=== PATIENT | female | born 1955 | race Caucasian/White ===

== ENCOUNTER → 2016-05-24 | Outpatient (CLI) | payer OTHER ==
[~2016-05-24] MED LIST: AZELASTINE NASAL; CALCIUM; CALCIUM 1,2001 EACH; DERMACORT1 GM; DICLOFENAC 0.1%; ESTRACE0.5 MG; ESTRADIOL0.5 MG; Estrace; FLAXSEED OIL1000 M1 PO; LANSOPRAZOLE30 MG PO; LIDODERM30 EA TOP; MAGNESIU; MAGNESIUM OXIDE PO; MAGNESIUM250 M1; MAGNESIUM250 M1 PO; METOPROLOL TAR25 MG PO; MYRBETRIQ50 MG PO; NASACORT10.8 ML; NASONEX17 GM; NEURONTIN PO; NEURONTIN100 MG; PREMARIN VAG CR45 GM MC; PREVACID PO; REFRESH OPTIVE1 EACH; RESTASIS1 EACH; TYSABRI; VITAMIN D35000 UNIT PO; VOLTAREN 0.1%2.5 M1 OD; VOLTAREN GEL; VOLTAREN100 GM; VOLTAREN100 GM TP; Voltaren; XYLOCAINE MPF; [UNRECOGNIZED DRUG - OTHER]; [UNRECOGNIZED DRUG - OTHER] PO; [UNRECOGNIZED DRUG - OTHER] PO; [UNRECOGNIZED DRUG - SUPPLY]
--- NOTE | ~2016-05-24 | MR17 ---
[facility] A Service of [facility] RADIOLOGY TEXT RESULTS PATIENT: HUSSEIN AGUIRRE LOCATION: [facility] : 59 UNIT #: [id number] AGE: [address]: Daniel Griffin II, MD SEX: F ORDER DR: [id number] [address] [address] [id number] O MR#: [id number] Acc #: [id number] NAME: HUSSEIN AGUIRRE : 1955 SEX: F STUDY DATE/TIME: 05/24/2016 12:45 UNIT: [facility] ROOM: STUDY DESCRIPTION: MR Brain WWo Contrast Attending Physician: Daniel Griffin II., M.D. Ordering Physician: Daniel Griffin II., M.D. Primary Care Physician: Elie Rayo D.O. MRI CENTER REPORT This report is preliminary unless electronic signature is present. EXAM Brain MRI with and without contrast HISTORY Multiple sclerosis for many years. No new symptoms. Evaluate for progression over time. TECHNIQUE Multiplanar imaging of the brain was performed with and without contrast. 20 mL of MultiHance was used. COMPARISON 11/29/2015 FINDINGS Extensive demyelinating disease is seen in the periventricular region bilaterally. Additional plaques are seen in both temporal lobes and in the upper elio. Plaque is seen in the cerebellum on both sides and in the superior and middle cerebellar peduncles. Since the previous examination overall extent and distribution of plaque is unchanged. Postcontrast imaging shows no enhancing plaques. No mass lesions are seen. No evidence of recent infarct on diffusion weighted images. No evidence of hemorrhage. IMPRESSION Extensive demyelinating disease. Overall the plaque load is stable since the previous exam with no enhancing plaques seen. Dictated by... Elie Ashley M.D. THIS IS AN ELECTRONICALLY VERIFIED REPORT [facility] A Service [facility] RADIOLOGY TEXT RESULTS PATIENT: HUSSEIN AGUIRRE LOCATION: [facility] : 59 UNIT #: [id number] AGE: [address]: Daniel Griffin II, MD SEX: F ORDER DR: Elie Ashley M.D. at 05/28/2016 4:31 PM RUDOLPH/rolando TD: 05/24/2016 17:28 JOB #: [id number] MRI CENTER REPORT
--- NOTE | ~2016-05-24 | MR31 ---
[facility] A Service of [facility] RADIOLOGY TEXT RESULTS PATIENT: UHSSEIN AGUIRRE LOCATION: [facility] : 59 UNIT #: [id number] AGE: [address]: Daniel Griffin II, MD SEX: F ORDER DR: [id number] [address] [address] [id number] O MR#: [id number] Acc #: [id number] NAME: HUSSEIN AGUIRRE : 1955 SEX: F STUDY DATE/TIME: 05/24/2016 13:25 UNIT: [facility] ROOM: STUDY DESCRIPTION: MR Cervical WWo Contrast Attending Physician: Daniel Griffin II., M.D. Ordering Physician: Daniel Griffin II., M.D. Primary Care Physician: Elie Rayo D.O. MRI CENTER REPORT This report is preliminary unless electronic signature is present. EXAM Cervical spine MRI with and without contrast COMPARISON 11/29/2015 HISTORY Chronic multiple sclerosis. Evaluate for progression of disease over time. TECHNIQUE Multiplanar imaging of the cervical spine was performed with and without contrast. 20 mL of MultiHance was used. FINDINGS Moderate degenerative disc disease at C5-6 and C6-7 is again noted with milder degenerative changes at the other cervical levels. There is a plaque in the ventral cord to the right of midline at C2-3 that is unchanged from the previous scan. There is probably a small plaque in the lateral aspect of the cord on the right at C5. This is not a definite finding. There is a small plaque in the right side of the cord at C7-T1. This is unchanged as well. After contrast administration none of the cervical cord lesions enhance with contrast. IMPRESSION Subtle areas of increased T2 signal are seen in the cervical cord predominantly on the right side showing no significant change from the previous exam. No new or enhancing plaques are noted. Dictated by... Elie Ashley M.D. THIS IS AN ELECTRONICALLY VERIFIED REPORT [facility] A Service [facility] RADIOLOGY TEXT RESULTS PATIENT: HUSSEIN AGUIRRE LOCATION: [facility] #: [id number] : 59 UNIT #: [id number] AGE: [address]: Daniel Griffin II, MD SEX: F ORDER DR: Elie Ashley M.D. at 05/28/2016 4:31 PM Milana TD: 05/24/2016 17:15 JOB #: [id number] MRI CENTER REPORT
== END | disposition home or self-care (01) ==
LOC: SMRI 12:39
DX: G35 Multiple sclerosis (principal); G37.9 Demyelinating disease of central nervous system, unspecified; G93.89 Other specified disorders of brain
CPT/HCPCS: 70553; 72156; A9581

== ENCOUNTER → 2016-05-31 | Outpatient (CLI) | payer OTHER ==
--- NOTE | ~2016-05-31 | MR175 ---
[facility] A Service of [facility] RADIOLOGY TEXT RESULTS PATIENT: HUSSEIN AGUIRRE LOCATION: [facility] : 59 UNIT #: [id number] AGE: [address]: Daniel Griffin II, MD SEX: F ORDER DR: [id number] [address] [address] [id number] O MR#: [id number] Acc #: [id number] NAME: HUSSEIN AGUIRRE : 1955 SEX: F STUDY DATE/TIME: 05/31/2016 12:02 UNIT: [facility] ROOM: STUDY DESCRIPTION: MR Thoracic WWo Contrast Attending Physician: Daniel Griffin II., M.D. Referring Physician: Daniel Griffin II., M.D. Ordering Physician: Daniel Griffin II., M.D. Primary Care Physician: Elie Rayo D.O. MRI CENTER REPORT This report is preliminary unless electronic signature is present. EXAM Thoracic spine MR with and without contrast. HISTORY Serial interval follow-up for known multiple sclerosis; no new symptoms. COMPARISON STUDIES Prior MRI thoracic spine, 12/11/2015. FINDINGS Alignment is normal, and bone marrow signal is within normal limits. The paraspinous tissues are unremarkable. There is some slight degenerative change, but no canal stenosis at any level. Redemonstrated cholelithiasis. Multiple foci of abnormal T2 signal are redemonstrated within the thoracic cord, but postcontrast images show no convincing abnormal enhancement. No definite new lesions are seen. No areas of new cord expansion or volume loss. IMPRESSION 1. Stable extensive patchy T2 signal abnormality throughout the thoracic cord. No enhancing lesions are seen. No volume loss or cord expansion. 2. Mild degenerative change without substantial canal stenosis redemonstrated. 3. Redemonstrated incidental cholelithiasis. Dictated by... Ricardo Calles M.D. [facility] A Service of [facility] RADIOLOGY TEXT RESULTS PATIENT: HUSSEIN AGUIRRE LOCATION: [facility] : 59 UNIT #: [id number] AGE: [address]: Daniel Griffin II, MD SEX: F ORDER DR: THIS IS AN ELECTRONICALLY VERIFIED REPORT Ricardo Calles M.D. at 06/03/2016 4:31 PM BOOGIE/young TD: 06/03/2016 14:47 JOB #: [id number] MRI CENTER REPORT
== END | disposition home or self-care (01) ==
LOC: SMRI 11:41
DX: G35 Multiple sclerosis (principal); M47.814 Spondylosis without myelopathy or radiculopathy, thoracic region
CPT/HCPCS: 72157; A9581

== ENCOUNTER → 2016-06-17 | Outpatient (CLI) | payer OTHER | END | disposition home or self-care (01) | LOC: CSSDAY 10:05 | DX: G35 Multiple sclerosis (principal); Z79.899 Other long term (current) drug therapy | CPT/HCPCS: 96413; J2323 ==

== ENCOUNTER → 2016-07-12 | Outpatient (CLI) | payer OTHER | END | disposition home or self-care (01) | LOC: CSSDAY 10:13 | DX: G35 Multiple sclerosis (principal); Z79.899 Other long term (current) drug therapy | CPT/HCPCS: 96413; J2323 ==

== ENCOUNTER → 2016-08-07 | Outpatient (CLI) | payer OTHER | END | disposition home or self-care (01) | LOC: CSSDAY 09:00 | DX: G35 Multiple sclerosis (principal); Z79.899 Other long term (current) drug therapy | CPT/HCPCS: 96413; J2323 ==

== ENCOUNTER → 2016-08-14 | Outpatient (CLI) | payer OTHER ==
--- NOTE | ~2016-08-14 | US85 ---
[facility] A Service of [facility] RADIOLOGY TEXT RESULTS PATIENT: HUSSEIN AGUIRRE LOCATION: [facility] : 59 UNIT #: [id number] AGE: [address]: Isha Bennett MD SEX: F ORDER DR: [id number] [facility] [address] [facility]. [place], [place] [address] [id number] O MR#: [id number] Acc #: [id number] NAME: HUSSEIN AGUIRRE : 1955 SEX: F STUDY DATE/TIME: 08/14/2016 12:26 UNIT: [facility] ROOM: STUDY DESCRIPTION: [facility] Veins Unilat or [facility] Attending Physician: Isha Bennett M.D. Referring Physician: Isha Bennett M.D. Ordering Physician: Isha Bennett M.D. Primary Care Physician: Elie Rayo D.O. MEDICAL IMAGING REPORT This report is preliminary unless electronic signature is present EXAM Left lower extremity venous duplex scan DATE OF EXAMINATION: 08/14/16 HISTORY Left leg pain and swelling. FINDINGS High resolution B mode imaging and color-flow Doppler analysis was performed of the deep and superficial veins of the left lower extremity. All veins are fully compressible with no intraluminal thrombus. Spontaneous and phasic flow is noted in the left common femoral, deep femoral, femoral, and popliteal veins. Flow is demonstrated in the left anterior tibial, posterior tibial, and peroneal veins. Flow is also present in the left great saphenous vein. IMPRESSION Normal venous examination of the left lower extremity. No deep or superficial vein thrombosis in the left leg. Dictated by... Zeyad Farley M.D. THIS IS AN ELECTRONICALLY VERIFIED REPORT Zeyad Farley M.D. at 08/15/2016 7:32 AM MARTINEZ/reilly TD: 08/14/2016 13:27 JOB #: [id number] [facility] A Service of [facility] RADIOLOGY TEXT RESULTS PATIENT: HUSSEIN AGUIRRE [id number] 59 UNIT #: [id number] AGE: [address]: Isha Bennett MD SEX: F ORDER DR: MEDICAL IMAGING REPORT Page 1 of 1 COPY
== END | disposition home or self-care (01) ==
LOC: CNIV 11:57
DX: I82.402 Acute embolism and thrombosis of unspecified deep veins of left lower extremity (principal)
CPT/HCPCS: 93971

== ENCOUNTER → 2016-09-02 | Outpatient (CLI) | payer OTHER | END | disposition home or self-care (01) | LOC: CSSDAY 09:20 | DX: G35 Multiple sclerosis (principal); Z79.899 Other long term (current) drug therapy | CPT/HCPCS: 96413; J2323 ==

== ENCOUNTER → 2016-09-27 | Outpatient (CLI) | payer OTHER | END | disposition home or self-care (01) | LOC: CSSDAY 09:16 | DX: G35 Multiple sclerosis (principal); Z79.899 Other long term (current) drug therapy | CPT/HCPCS: 96413; J2323 ==

== ENCOUNTER → 2016-10-23 | Outpatient (CLI) | payer OTHER | END | disposition home or self-care (01) | LOC: CSSDAY 09:58 | DX: G35 Multiple sclerosis (principal) | CPT/HCPCS: 96413; J2323 ==

== ENCOUNTER → 2016-11-08 | Outpatient (CLI) | payer OTHER ==
--- NOTE | ~2016-11-08 | MR31 ---
[facility] A Service of [facility] RADIOLOGY TEXT RESULTS PATIENT: HUSSEIN AGUIRRE LOCATION: [facility] : 59 UNIT #: [id number] AGE: [address]: Daniel Griffin II, MD SEX: F ORDER DR: [id number] [address] [address] [id number] O MR#: [id number] Acc #: [id number] NAME: HUSSEIN AGUIRRE : 1955 SEX: F STUDY DATE/TIME: 11/08/2016 12:57 UNIT: [facility] ROOM: STUDY DESCRIPTION: MR Cervical WWo Contrast Attending Physician: Daniel Griffin II., M.D. Referring Physician: Daniel Griffin II., M.D. Ordering Physician: Daniel Griffin II., M.D. Primary Care Physician: Elie Rayo D.O. MRI CENTER REPORT This report is preliminary unless electronic signature is present. EXAM Cervical spine MRI with and without contrast 11/08/2016 PROCEDURE Cervical spine MRI with and without contrast performed on 10/31/2016 with postcontrast images on 11/08/2016 HISTORY Multiple sclerosis, routine follow up. No new symptoms. COMPARISON 05/21/2016. FINDINGS Spine alignment is normal. Bone marrow signal is normal. The paraspinous tissues are unremarkable. There are some degenerative changes, with some right canal and foraminal narrowing at 3-4, mild canal narrowing at 4-5, canal and slight foraminal narrowing at 5-6, but no cord compression, and canal narrowing and slight left foraminal narrowing at 6-7 without cord compression. These findings are stable. There is some abnormal T2 signal in the right hand margin of the cord at about the level of the 5-6 and 6-7 disc. It is fairly subtle but there is no abnormal enhancement, and it is probably unchanged since the prior study. IMPRESSION Faint abnormal T2 signal in the right hand margin of the cord about the 5-6 and 6-7 disc and fairly subtle overall though probably unchanged since the prior study. No new abnormality is seen. No abnormal enhancement. There are modest degenerative changes without cord compression. This appears stable as well. [facility] A Service of [facility] RADIOLOGY TEXT RESULTS PATIENT: HUSSEIN AGUIRRE LOCATION: [facility] : 59 UNIT #: [id number] AGE: [address]: Daniel Griffin II, MD SEX: F ORDER DR: Dictated by... Ricardo Calles M.D. THIS IS AN ELECTRONICALLY VERIFIED REPORT Ricardo Calles M.D. at 11/15/2016 4:55 PM TEV/cmm TD: 11/11/2016 14:20 JOB #: [id number] MRI CENTER REPORT Page 1 of 1
--- NOTE | ~2016-11-08 | MR17 ---
[facility] A Service of [facility] RADIOLOGY TEXT RESULTS PATIENT: HUSSEIN AGUIRRE LOCATION: [facility] : 59 UNIT #: [id number] AGE: [address]: Daniel Griffin II, MD SEX: F ORDER DR: [id number] [place] [id number] O MR#: [id number] Acc #: [id number] NAME: HUSSEIN AGUIRRE : 1955 SEX: F STUDY DATE/TIME: 11/08/2016 12:46 UNIT: [facility] ROOM: STUDY DESCRIPTION: MR Brain WWo Contrast Attending Physician: Daniel Griffin II., M.D. Referring Physician: Daniel Griffin II., M.D. Ordering Physician: Daniel Griffin II., M.D. Primary Care Physician: Elie Rayo D.O. MRI CENTER REPORT This report is preliminary unless electronic signature is present. EXAM Brain MR with and without contrast. PROCEDURE Brain MRI with and without contrast was performed as a without series on 10/25/2016 and postcontrast images on 11/08/2016. COMPARISON Prior brain MRI, 05/24/2016. HISTORY Known multiple sclerosis, routine followup, no new symptoms. FINDINGS Extensive white matter changes typical of multiple sclerosis are redemonstrated along with mild cerebral volume loss, both stable since the prior study. There are no new white matter lesions when compared to the study of 05/16/2016 and there are no areas of restricted diffusion. Postcontrast images show no abnormal enhancement and there is no hemorrhage or hydrocephalus or extraaxial fluid collection. Normal flow voids are seen in the cerebral vessels. There is some mild paranasal sinus mucosal thickening in the maxillary sinus floors bilaterally. IMPRESSION Stable extensive white matter changes typical of multiple sclerosis, no interval change since 05/24/2016. No areas of abnormal diffusion signal or contrast enhancement are seen to suggest active demyelination. No interval change since 05/24/2016. Dictated by... [facility] A Service [facility] RADIOLOGY TEXT RESULTS PATIENT: HUSSEIN AGUIRRE LOCATION: [facility] : 59 UNIT #: [id number] AGE: [address]: Daniel Griffin II, MD SEX: F ORDER DR: Ricardo Calles M.D. THIS IS AN ELECTRONICALLY VERIFIED REPORT Ricardo Calles M.D. at 11/15/2016 4:54 PM TEV/tmw TD: 11/11/2016 12:25 JOB #: [id number] MRI CENTER REPORT Page 1 of 1
== END | disposition home or self-care (01) ==
LOC: SMRI 11-06 10:15
DX: G35 Multiple sclerosis (principal); M47.892 Other spondylosis, cervical region; R93.7 Abnormal findings on diagnostic imaging of other parts of musculoskeletal system
CPT/HCPCS: 70553; 72156; A9581

== ENCOUNTER → 2016-11-15 | Outpatient (CLI) | payer OTHER ==
--- NOTE | ~2016-11-15 | MR175 ---
[facility] A Service of [facility] RADIOLOGY TEXT RESULTS PATIENT: HUSSEIN AGUIRRE LOCATION: [facility] : 59 UNIT #: [id number] AGE: [address]: Daniel Griffin II, MD SEX: F ORDER DR: [id number] [address] [address] [id number] O MR#: [id number] Acc #: [id number] NAME: HUSSEIN AGUIRRE : 1955 SEX: F STUDY DATE/TIME: 11/15/2016 10:24 UNIT: [facility] ROOM: STUDY DESCRIPTION: MR Thoracic WWo Contrast Attending Physician: Daniel Griffin II., M.D. Referring Physician: Daniel Griffin II., M.D. Ordering Physician: Daniel Griffin II., M.D. Primary Care Physician: Elie Rayo D.O. MRI CENTER REPORT This report is preliminary unless electronic signature is present. EXAM MRI of the thoracic spine with and without contrast dated 11/15/2016 COMPARISON MRI thoracic spine with and without contrast dated 05/31/2016. HISTORY Follow-up known multiple sclerosis. No new complaints. FINDINGS Multisequence, multiplanar imaging of the thoracic spine was obtained with and without contrast. 20 mL of MultiHance was administered intravenously. Vague multiple increased T2 signal changes are noted in the thoracic cord involving multiple levels. They do not appear to have significantly changed given the differences in slice selection. Mild degenerative disc disease and facet changes are noted at multiple levels. They do not appear to have significantly changed either. There is a fatty signal lesion noted within the right lateral aspect of T7 and left lateral aspect of T2 vertebral bodies. They demonstrate mild increased T2 signal particularly prominent at T7. It is likely related to incidental benign lesion like atypical hemangioma. No associated pathological fracture or extraosseous soft tissue components are seen. There is fatty matter conversion noted at multiple levels but the fat appeared to be prominent at the above mentioned two levels suspicious for a possible lesion. There appears to be increased DWI signal associated with the left seventh rib. It has increased T2 signal without any obvious T1 signal change. Similar lesion is also noted in left T9th rib. These lesions are best seen in the STIR sequence. Stable in the last five months. IMPRESSION 1. Nonenhancing subtle multiple T2 signal changes are noted in the cord, best seen in the sagittal images. They are in keeping with chronic STS. [facility] A Service of [facility] RADIOLOGY TEXT RESULTS PATIENT: HUSSEIN AGUIRRE LOCATION: [facility] : 59 UNIT #: [id number] AGE: [address]: Daniel Griffin II, MD SEX: F ORDER DR: multiple sclerosis plaques. No obvious enhancing plaque is identified. 2. There is heterogeneous marrow signal noted likely related to fatty matter conversion. Within several of the vertebral bodies like T2, T7 there appears to be some associated edema favoring lesion like atypical hemangioma. Stable. There is also about a cm or smaller increased STIR lesions noted within the left seventh and ninth rib close to the vertebral bodies. They are not well-correlated in the axial T1 sequences and are of uncertain clinical significance. They were also seen in the previous study. They could represent fatty signal lesions like atypical hemangioma too. Dictated by... Brandon Kaplan M.D. THIS IS AN ELECTRONICALLY VERIFIED REPORT Brandon Kaplan M.D. at 11/19/2016 11:39 AM CPR/rnr TD: 11/16/2016 03:57 JOB #: [id number] MRI CENTER REPORT Page 1 of 1
== END | disposition home or self-care (01) ==
LOC: SMRI 11-08 10:15
DX: G35 Multiple sclerosis (principal); M89.9 Disorder of bone, unspecified
CPT/HCPCS: 72157; A9581

== ENCOUNTER → 2016-11-19 | Outpatient (CLI) | payer OTHER | END | disposition home or self-care (01) | LOC: CSSDAY 11-18 10:00 | DX: G35 Multiple sclerosis (principal) | CPT/HCPCS: J2323 ==

== ENCOUNTER → 2016-12-10 | Outpatient (CLI) | payer OTHER ==
[2016-12-10 11:56] LABS: BASOPHIL# 0.1 X10e3 (0-0.3); EOSINOPHIL# 0.1 X10e3 (0-0.7); EOSINOPHIL% 1.5 % (0.0-7.0); HEMATOCRIT 40.4 % (35.0-45.0); HEMOGLOBIN 13.6 gm/dL (12.0-16.0); LYMPHOCYTE# 2.8 X10e3 (1.0-3.5); LYMPHOCYTE% 30.8 % (17.0-45.0); MEAN CELL VOLUME 92.2 FL (83-96); MEAN CORPUSCULAR HEMOGLOBIN 31.1 PG (28-34); MEAN CORPUSCULAR HGB CONC 33.7 g/dL (30-36); MEAN PLATELET VOLUME 9.6 FL (6.5-11.5); MONOCYTE# 0.7 X10e3 (0-1.0); MONOCYTE% 7.9 % (3.0-12.0); NEUTROPHIL# 5.4 X10e3 (1.5-7.1); NEUTROPHIL% 58.8 % (40-75); PLATELET COUNT 199 X10e3 (140-420); RED BLOOD COUNT 4.38 X10e (3.90-5.30); RED CELL DISTRIBUTION WIDTH 15.1 % (11.0-15.5); WHITE BLOOD COUNT 9.1 X10e3 (4.0-10.5)
[2016-12-10 11:58] LABS: DIFF IND NO
[2016-12-10 12:12] LABS: ALBUMIN SERUM 4.4 g/dL (3.5-5.0); BILIRUBIN,TOTAL 0.8 mg/dL (0.2-2.0); CREATININE SERUM 0.6 mg/dL (0.6-1.4); GLOM FILT RATE Estimated 99.8 mL/min (>60); POTASSIUM 3.6 mmol/L (3.5-5.1); PROTEIN TOTAL SERUM 7.7 g/dL (6.0-8.3)
[2016-12-10 12:53] LABS: THYROID STIMULATING HORMONE 0.95 uIU/ml (0.34-5.60)
[2016-12-10 17:24] LABS: FREE T3 2.9 pg/mL (2.5-3.9)
[2016-12-10 17:25] LABS: FREE THYROXIN (T4) 0.96 ng/dL (0.58-1.64)
== END | disposition home or self-care (01) ==
LOC: SLAB 11:27
PROVIDERS: Family Medicine
DX: G35 Multiple sclerosis (principal); E78.5 Hyperlipidemia, unspecified; E53.8 Deficiency of other specified B group vitamins; E03.8 Other specified hypothyroidism
CPT/HCPCS: 36415; 80053; 80061; 82607; 84439; 84443; 84481; 85025

== ENCOUNTER → 2016-12-18 | Outpatient (CLI) | payer OTHER ==
--- NOTE | ~2016-12-18 | MR60 ---
[facility] A Service of [facility] RADIOLOGY TEXT RESULTS PATIENT: HUSSEIN AGUIRRE LOCATION: [facility] : 59 UNIT #: [id number] AGE: [address]: DOMINIC PITTS DO SEX: F ORDER DR: [id number] [address] [address] [id number] O MR#: [id number] Acc #: [id number] NAME: HUSSEIN AGUIRRE : 1955 SEX: F STUDY DATE/TIME: 12/18/2016 12:54 UNIT: [facility] ROOM: STUDY DESCRIPTION: Foot Wo Contrast Lt Attending Physician: Dominic Pitts D.O. Referring Physician: Dominic Pitts D.O. Ordering Physician: Dominic Pitts D.O. Primary Care Physician: Dominic Pitts D.O. MRI CENTER REPORT This report is preliminary unless electronic signature is present. EXAM MRI of the left foot HISTORY A 61-year-old female, left foot pain for 1.5 weeks. Dropped metal grate on foot. Some swelling and bruising. COMPARISON MRI of the left foot 12/29/2014 FINDINGS Multiplanar multiecho imaging was form the left forefoot utilizing a high field magnet and dedicated protocol. No focal marrow edema identified to suggest an occult fracture or bone contusion. Mild soft tissue swelling over the dorsum of the foot may represent a soft tissue contusion. No defined hematoma. Diffuse atrophy of the intrinsic foot musculature. Focal fluid collections seen along the plantar aspect of the fourth metatarsal measuring about 6 mm in length. Etiology unclear, but this could represent a small ganglion cyst. As noted on the previous MRI of the foot, there is fluid within the first webspace that could represent inner metatarsal bursitis though it does represent a nonspecific finding. Some fluid is also seen in the third webspace between the third and fourth metatarsals. This could also reflect inner metatarsal bursitis. Extensor and flexor tendons unremarkable. IMPRESSION 1. Moderate amount of soft tissue swelling edema over the dorsum of foot but no defined hematoma and no evidence of underlying occult fracture. No bone contusion. 2. Fluid in the first and third interspaces between the first and second and third fourth metatarsal heads could represent inner metatarsal bursitis though represents a nonspecific finding. [facility] A Service of [facility] RADIOLOGY TEXT RESULTS PATIENT: HUSSEIN AGUIRRE LOCATION: [facility] : 59 UNIT #: [id number] AGE: [address]: DOMINIC PITTS DO SEX: F ORDER DR: 3. A small cystic collection along the plantar aspect of the fourth metatarsal head could represent small synovial cyst or ganglion cyst. 4. Diffuse atrophy of the intrinsic foot musculature would suggest longstanding neurovascular disease. Dictated by... Kamille Figueroa M.D. THIS IS AN ELECTRONICALLY VERIFIED REPORT Kamille Figueroa M.D. at 12/23/2016 6:03 AM Ricardo TD: 12/18/2016 18:59 JOB #: [id number] MRI CENTER REPORT Page 1 of 1
== END | disposition home or self-care (01) ==
LOC: SMRI 09:30
DX: M79.672 Pain in left foot (principal); S90.122S Contusion of left lesser toe(s) without damage to nail, sequela; M79.89 Other specified soft tissue disorders; R60.0 Localized edema; M62.572 Muscle wasting and atrophy, not elsewhere classified, left ankle and foot; R93.7 Abnormal findings on diagnostic imaging of other parts of musculoskeletal system
CPT/HCPCS: 73718